=== PATIENT | female | born 1925 | race Caucasian/White ===

== ENCOUNTER 2016-07-11 10:25 | Emergency (ER) | payer MEDICARE, OTHER ==
[~2016-07-11] VITALS: Ht 165.1 cm; Wt 47.0 kg
[~2016-07-11 10:25] MED LIST: ANUC25SU PR; CELE10TA9 PO; COLE625 PO; DOCU1CAP39 PO; FERR324T4 PO; GABA300C3 PO; LORA-474 PO; LORTA5 PO; MAGN400T19 PO; ONDA4 PO; PROT40TA PO; RANI150T PO; SYNT75TA PO; TAB-TAB PO; VITA-13 PO; VITA500S3 PO; ZOFR4TAB3 SL
[2016-07-11 10:30] VITALS: BP 190/88; PULSE 87; RESP 16; TEMP 98
--- NOTE | 2016-07-11 10:39 | PD ---
HPI Chief Complaint: fall Time Seen by Provider: 10:35 Travel History International Travel<30 days: No Contact w/Intl Traveler<30days: No Traveled to known affect area: No History of Present Illness HPI The patient is a 89-year-old female who presents emergency department via [facility] from the assisted after a fall. The patient has a history of dementia, has had increased agitation since yesterday according to the daughter , and was diagnosed with UTI yesterday. The patient apparently fell and struck her head, unsure if there was any loss of consciousness. The daughter does state the patient is slightly agitated, but appears to be a baseline neurologically. The patient does have a history of dementia and tremor, refused her medications this morning. The patient takes none on blood thinners according to the daughter. The patient denies any symptoms including headache, neck pain, chest pain, shortness breath, nausea, vomiting, or abdominal pain. PFSH Past Medical History Anemia: Yes Cancer: Yes (COLON) High Cholesterol: Yes Diminished Hearing: No Endocrine: No Gastrointestinal Disorders: Yes (COLITIS, COLON RESECTION DUE TO CANCER) GERD: Yes Immune Disorder: No Neurologic: Yes (RESTLESS LEG) Psychiatric: No Immunizations Current: Yes Thyroid Disease: Yes Menopausal: Yes : 1 Para: 1 Past Surgical History Abdominal Surgery: Yes (COLON RESECTION) Hysterectomy: Yes Pacemaker: No Other Surgery: Yes Social History Alcohol Use: No Tobacco Use: No Substance Use: No Allergies-Medications (Allergen,Severity, Reaction): Coded Allergies: No Known Allergies (Verified , 08/28/14) Reported Meds & Prescriptions Reported Meds & Active Scripts Active Zofran ODT (Ondansetron HCl) 4 Mg Tab 4 Mg SL Q6H PRN FOR NAUSEA/VOMITING Reported Protonix (Pantoprazole Sodium) 40 Mg Tab 40 Mg PO DAILY Hydrocodone/Acetaminophen 5 mg/325 mg 1 Tab Tab 1 Tab PO Q6H PRN Zofran 4 Mg Tab (Ondansetron Hcl) 4 Mg Tab 4 Mg PO Q6 PRN [place] 5/325 (Hydrocodone/Acetaminophen 5/325) 325 Mg/5 Mg Tab 1 Tab PO Q4H PRN Ativan (Lorazepam) 1 Mg Tab 1 Mg PO Q6H PRN Ranitidine Hcl (Ranitidine HCl) 150 Mg Cap 150 Mg PO HS Magnesium Oxide (Magnesium Oxide (mg Supplement)) 400 Mg Tab 400 Mg PO TID Ferrous Sulfate 325 Mg Tab 325 Mg PO BID Colace 100 Mg Cap (Docusate Sodium) 100 Mg Cap 100 Mg PO BID Anucort-Hc (Hydrocortisone Acetate (Rectal) 25 Mg Sup 25 Mg AR BID Vitamin B-12 (Cyanocobalamin) 500 Mcg Tab 1,000 Mg PO DAILY Multivitamin (Multivitamins) 1 Tab Tab 1 Tab PO DAILY Celexa (Citalopram Hydrobromide) 10 Mg Tab 10 Mg PO HS Vitamin D3 1000 Unit Tab (Cholecalciferol) 1,000 Unit Tab 5,000 Unit PO WEEKLY Welchol 625 Mg Tab (Colesevelam HCl) 625 Mg Tab 625 Mg PO BID Synthroid 75 mcg (Levothyroxine Sodium) 75 Mcg Tab 75 Mcg PO DAILY Gabapentin 300 Mg Cap 900 Mg PO HSPRN Gabapentin 300 Mg Cap 300 Mg PO 9AM, 12 NOON Review of Systems Except as stated in HPI: all other systems reviewed are Neg Neurologic: Positive: Tremor, Change in Mentation (slight increase in agitation according to the daughter) Physical Exam Narrative GENERAL: Awake, alert, pleasant 89-year-old female who appears her stated age and is in no acute respiratory distress. SKIN: Focused skin assessment warm/dry. HEAD: Contusion with ecchymosis noted over the right frontal forehead. EYES: Pupils equal and round. Pupils are 3 mm bilateral and reactive. EOMs are intact. Patient is wearing glasses. ENT: No nasal bleeding or discharge. Mucous membranes pink and moist. NECK: Trachea midline. No JVD. CARDIOVASCULAR: Regular rate and rhythm. No murmur appreciated. RESPIRATORY: No accessory muscle use. Clear to auscultation. Breath sounds equal bilaterally. GASTROINTESTINAL: Abdomen soft, non-tender, nondistended. No rebound tenderness. MUSCULOSKELETAL: No obvious deformities. No clubbing. No cyanosis. No edema. Technology Services Manager strength is 5 out of 5 bilateral. Plantar flexion/dorsiflexion are 5 out of 5. Patient is able flex her hips and her knees bilaterally. NEUROLOGICAL: Awake and alert. No obvious cranial nerve deficits. Motor grossly within normal limits. Normal speech. Repetitive mouth movements and tremors. Oriented to person and place. PSYCHIATRIC: Appropriate mood and affect; insight and judgment normal. Data Data Last Documented VS Vital Signs Date Time Temp Pulse Resp B/P Pulse Ox O2 Delivery O2 Flow Rate FiO2 07/11/16 11:26 71 18 97 Room Air 07/11/16 11:26 185/83 07/11/16 10:[address] Brain W/O Iv Contrast(Rout) (07/11/16 ) Complete Blood Count With Diff (07/11/16 10:35) Comprehensive Metabolic Panel (07/11/16 10:35) Urinalysis - C+S If Indicated (07/11/16 10:35) Potassium Chloride Eff (K-Lyte Cl Eff) (07/11/16 11:45) Urine Culture (07/11/16 11:20) Labs Laboratory Tests Test 07/11/16 07/11/16 10:45 11:20 White Blood Count 8.2 TH/MM3 Red Blood Count 4.31 MIL/MM3 Hemoglobin 13.0 GM/DL Hematocrit 38.1 % Mean Corpuscular Volume 88.3 FL Mean Corpuscular Hemoglobin 30.0 PG Mean Corpuscular Hemoglobin 34.0 % Concent Red Cell Distribution Width 14.1 % Platelet Count 244 TH/MM3 Mean Platelet Volume 9.3 FL Neutrophils (%) (Auto) 73.8 % Lymphocytes (%) (Auto) 14.9 % Monocytes (%) (Auto) 7.8 % Eosinophils (%) (Auto) 2.5 % Basophils (%) (Auto) 1.0 % Neutrophils # (Auto) 6.1 TH/MM3 Lymphocytes # (Auto) 1.2 TH/MM3 Monocytes # (Auto) 0.6 TH/MM3 Eosinophils # (Auto) 0.2 TH/MM3 Basophils # (Auto) 0.1 TH/MM3 CBC Comment DIFF FINAL Differential Comment Sodium Level 140 MEQ/L Potassium Level 3.1 MEQ/L Chloride Level 107 MEQ/L Carbon Dioxide Level 24.3 MEQ/L Anion Gap 9 MEQ/L Blood Urea Nitrogen 21 MG/DL Creatinine 1.11 MG/DL Estimat Glomerular Filtration 46 ML/MIN Rate Random Glucose 74 MG/DL Calcium Level 8.8 MG/DL Total Bilirubin 0.3 MG/DL Aspartate Amino Transf 14 U/L (AST/SGOT) Alanine Aminotransferase 16 U/L (ALT/SGPT) Alkaline Phosphatase 182 U/L Total Protein 7.2 GM/DL Albumin 3.2 GM/DL Urine Color YELLOW Urine Turbidity CLEAR Urine pH 6.0 Urine Specific [place] 1.014 Urine Protein 30 mg/dL Urine Glucose (UA) NEG mg/dL Urine Ketones NEG mg/dL Urine Occult Blood SMALL Urine Nitrite POS Urine Bilirubin NEG Urine Urobilinogen LESS THAN 2.0 MG/DL Urine Leukocyte Esterase MOD Urine RBC 1 /hpf Urine WBC 22 /hpf Urine Bacteria OCC /hpf Urine Mucus FEW /lpf Microscopic Urinalysis Comment CULTURE INDICATED MDM Medical Decision Making Medical Screen Exam Complete: Yes Emergency Medical Condition: Yes Medical Record Reviewed: Yes Interpretation(s) Last Impressions Head CT 07/11/16 0000 Signed Impressions: Service Date/Time: Monday, July 11, 2016 10:51 - CONCLUSION: 1. Atrophy as described above. No evidence of acute intracranial pathology. Art David MD Laboratory Tests Test 07/11/16 07/11/16 10:45 11:20 White Blood Count 8.2 TH/MM3 Red Blood Count 4.31 MIL/MM3 Hemoglobin 13.0 GM/DL Hematocrit 38.1 % Mean Corpuscular Volume 88.3 FL Mean Corpuscular Hemoglobin 30.0 PG Mean Corpuscular Hemoglobin 34.0 % Concent Red Cell Distribution Width 14.1 % Platelet Count 244 TH/MM3 Mean Platelet Volume 9.3 FL Neutrophils (%) (Auto) 73.8 % Lymphocytes (%) (Auto) 14.9 % Monocytes (%) (Auto) 7.8 % Eosinophils (%) (Auto) 2.5 % Basophils (%) (Auto) 1.0 % Neutrophils # (Auto) 6.1 TH/MM3 Lymphocytes # (Auto) 1.2 TH/MM3 Monocytes # (Auto) 0.6 TH/MM3 Eosinophils # (Auto) 0.2 TH/MM3 Basophils # (Auto) 0.1 TH/MM3 CBC Comment DIFF FINAL Differential Comment Sodium Level 140 MEQ/L Potassium Level 3.1 MEQ/L Chloride Level 107 MEQ/L Carbon Dioxide Level 24.3 MEQ/L Anion Gap 9 MEQ/L Blood Urea Nitrogen 21 MG/DL Creatinine 1.11 MG/DL Estimat Glomerular Filtration 46 ML/MIN Rate Random Glucose 74 MG/DL Calcium Level 8.8 MG/DL Total Bilirubin 0.3 MG/DL Aspartate Amino Transf 14 U/L (AST/SGOT) Alanine Aminotransferase 16 U/L (ALT/SGPT) Alkaline Phosphatase 182 U/L Total Protein 7.2 GM/DL Albumin 3.2 GM/DL Urine Color YELLOW Urine Turbidity CLEAR Urine pH 6.0 Urine Specific [place] 1.014 Urine Protein 30 mg/dL Urine Glucose (UA) NEG mg/dL Urine Ketones NEG mg/dL Urine Occult Blood SMALL Urine Nitrite POS Urine Bilirubin NEG Urine Urobilinogen LESS THAN 2.0 MG/DL Urine Leukocyte Esterase MOD Urine RBC 1 /hpf Urine WBC 22 /hpf Urine Bacteria OCC /hpf Urine Mucus FEW /lpf Microscopic Urinalysis Comment CULTURE INDICATED Differential Diagnosis Differential diagnosis includes closed head injury, intracranial hemorrhage, mechanical fall, contusion, hematoma, UTI, hyponatremia. Narrative Course CT of the brain was ordered. IV was established, labs are drawn and sent, and the patient was placed on cardiac telemetry monitoring and continuous pulse oximetry monitoring. CT of the brain is negative. Potassium was mildly low at 3.1, was replaced orally. UA is positive for infection, therefore, the patient was administered Cipro 400 mg intravenously and will be discharged home on Cipro 500 twice a day for 7 days. The patient is advised to follow-up with her primary physician and return if symptoms worsen or progress. Diagnosis Primary Impression: Closed head injury Qualified Code: S09.90XA - Closed head injury, initial encounter Additional Impression: UTI (urinary tract infection) Qualified Code: N30.00 - Acute cystitis without hematuria Patient Instructions: General Instructions Additional Instructions: Cipro as directed. Ice to the right forehead. Follow-up with your primary physician. Return if symptoms worsen or progress. Med/Other Pt SpecificInfo: Prescription(s) given Scripts Ciprofloxacin (Cipro)500 Mg [id number] Mg PO BID 7 Days Ref 0 Prov:Liban Art MD 07/11/16 Disposition: 01 DISCHARGE HOME (patient will be transferred back to the assisted-living facility/assisted) Condition: Stable Liban Art MD July 11, 2016 10:38
[2016-07-11 11:00] LABS: AUTOMATED NEUTROPHIL # 6.1 TH/MM3 (1.8-7.7); BASOPHIL # 0.1 TH/MM3 (0-0.2); EOSINOPHIL # 0.2 TH/MM3 (0-0.4); EOSINOPHIL % 2.5 % (0.0-4.0); HEMATOCRIT 38.1 % (35.0-46.0); HEMO FLAGS DIFF FINAL; LYMPH % 14.9 % (9.0-44.0); LYMPHOCYTE # 1.2 TH/MM3 (1.0-4.8); MEAN CELL VOLUME 88.3 FL (80.0-100.0); MONO % 7.8 % (0.0-8.0); NEUT % 73.8 % (16.0-70.0); PLATELET COUNT 244 TH/MM3 (150-450); RED BLOOD COUNT 4.31 MIL/MM3 (4.00-5.30); RED CELL DISTRIBUTION WIDTH 14.1 % (11.6-17.2); WHITE BLOOD COUNT 8.2 TH/MM3 (4.0-11.0)
--- NOTE | 2016-07-11 11:00 | RADRPT ---
EXAM DATE/TIME: 07/11/2016 10:51 [facility] COMPARISON: CT BRAIN W/O CONTRAST, August 28, 2014, 23:41. INDICATIONS : Trauma. Fall. Contusion on right forehead. RADIATION DOSE: 34.92 CTDIvol (mGy) MEDICAL HISTORY : Carcinoma, colon. SURGICAL HISTORY : Colon resection. Hysterectomy. ENCOUNTER: Initial ACUITY: 1 day PAIN SCALE: 4/10 LOCATION: Right cranial TECHNIQUE: Multiple contiguous axial images were obtained of the head. Using automated exposure control and adj ustment of the mA and/or kV according to patient size, radiation dose was kept as low as reasonably a chievable to obtain optimal diagnostic quality images. FINDINGS: There is no evidence of acute cortical infarction, acute hemorrhage, mass effect or midline shift. Th ere is diffuse moderate supratentorial and infratentorial atrophy. There is periventricular hypodensi ty compatible with chronic ischemic change slightly more than expected for patient this age. CONCLUSION: 1. Atrophy as described above. No evidence of acute intracranial pathology. Art David MD on July 11, 2016 at 10:56 Board Certified Radiologist. This report was verified electronically.
[2016-07-11 11:19] LABS: ANION GAP 9 MEQ/L (5-15); AST (GOT) 14 U/L (15-37); BICARBONATE 24.3 MEQ/L (21.0-32.0); BLOOD UREA NITROGEN 21 MG/DL (7-18); CHLORIDE 107 MEQ/L (98-107); GLOMERULAR FILTRATION RATE 46 ML/MIN (>89); POTASSIUM 3.1 MEQ/L (3.5-5.1); SODIUM (NA) 140 MEQ/L (136-145)
[2016-07-11 11:22] LABS: ALKALINE PHOSPHATASE 182 U/L (45-117); ALT (GPT) 16 U/L (10-53); TOTAL BILIRUBIN ADULT 0.3 MG/DL (0.2-1.0)
[2016-07-11 11:26] VITALS: BP 185/83; PULSE 71; RESP 18; O2SAT 97
[2016-07-11] MEDS ORDERED: POTASSIUM CHLORIDE 25 MEQ EFFERVESCENT TAB PO ONE (11:45)
[2016-07-11 11:48] LABS: BACTERIA, URINE OCC /hpf; BLOOD, URINE SMALL (NEG); COMMENT (UR) CULTURE INDICATED; CULTURE IF INDICATED CULTURE INDICATED; GLUCOSE,URINE NEG (NEG); KETONE, URINE NEG (NEG); MUCUS URINE FEW /lpf (OCC); NITRITE,URINE POS (NEG); URINE COLOR YELLOW (YELLW/STRAW)
[2016-07-11] MEDS ORDERED: CIPR-9 PO (12:11)
[2016-07-11] MEDS ORDERED: CIPROFLOXACIN 400 MG PREMIX 200 ML IV ONE (12:15)
[2016-07-11 13:29] VITALS: BP 167/81; PULSE 75; RESP 18; O2SAT 97
== END 2016-07-11 13:29 | disposition home or self-care (01) ==
LOC: NEPE 10:25
DX: S09.90XA Unspecified injury of head, initial encounter (principal); N30.00 Acute cystitis without hematuria; B96.20 Unspecified Escherichia coli [E. coli] as the cause of diseases classified elsewhere; W19.XXXA Unspecified fall, initial encounter; Y92.129 Unspecified place in nursing home as the place of occurrence of the external cause
CPT/HCPCS: 70450; 80053; 81001; 85025; 87077; 87086; 87186; 96365; 99284; J0744

== ENCOUNTER 2016-11-23 04:09 | Inpatient (IN) | payer MEDICARE, OTHER ==
[2016-11-23] VITALS (8 sets, daily range): BP systolic 132–185; BP diastolic 80–92; PULSE 92–99; RESP 16–22; TEMP 97.4–99.7; O2SAT 93–97
[~2016-11-23] VITALS: Ht 170.2 cm; Wt 53.3 kg
[~2016-11-23 04:09] MED LIST changes: +CIPR-9 PO
[2016-11-23] MEDS ORDERED: SODIUM CHLOR 0.9% 1000 ML INJ 1,000 ML IV SCH ×2 (04:29→05:00)
[2016-11-23] MEDS ORDERED: ONDANSETRON HCL 4 MG/2 ML VIAL IVP ONE (04:30)
[2016-11-23] MEDS ORDERED: SODIUM CHLORIDE 0.9% FLUSH 10 ML FLUSH IV FLUSH PRN ×2 (04:30→05:45)
[2016-11-23] MEDS ORDERED: FAMOTIDINE 20 MG/2 ML VIAL IV PUSH ONE (04:30)
[2016-11-23] MEDS ORDERED: ONDANSETRON HCL 4 MG/2 ML VIAL IV ONE (05:00)
[2016-11-23 05:03] LABS: AUTOMATED NEUTROPHIL # 17.6 TH/MM3 (1.8-7.7); BASOPHIL # 0.2 TH/MM3 (0-0.2); EOSINOPHIL % 0.1 % (0.0-4.0); HEMATOCRIT 46.4 % (35.0-46.0); LYMPH % 3.6 % (9.0-44.0); LYMPHOCYTE # 0.7 TH/MM3 (1.0-4.8); MEAN CELL VOLUME 90.4 FL (80.0-100.0); MEAN CORPUSCULAR HGB CONC 33.1 % (32.0-36.0); MONO % 4.1 % (0.0-8.0); NEUT % 91.2 % (16.0-70.0); PLATELET COUNT 296 TH/MM3 (150-450); RED BLOOD COUNT 5.13 MIL/MM3 (4.00-5.30); RED CELL DISTRIBUTION WIDTH 13.4 % (11.6-17.2); WHITE BLOOD COUNT 19.3 TH/MM3 (4.0-11.0)
[2016-11-23 05:06] LABS: HEMO FLAGS AUTO DIFF
[2016-11-23 05:14] LABS: POTASSIUM 3.6 MEQ/L (3.5-5.1)
[2016-11-23] MEDS ORDERED: LIDOCAINE HCL 1% 50 ML VIAL IM ONE (05:15)
[2016-11-23 05:17] LABS: BLOOD, URINE NEG (NEG); GLUCOSE,URINE NEG (NEG); KETONE, URINE NEG (NEG); NITRITE,URINE NEG (NEG); PH, URINE 7.5 (5.0-8.5)
[2016-11-23 05:19] LABS: URINE COLOR YELLOW (YELLW/STRAW)
[2016-11-23 05:22] LABS: COMMENT (UR) CATH-CULT NOT IND; CULTURE IF INDICATED CATH CULTURE NOT IND; RBC, URINE 0-3 /hpf (0-3); SQUAMOUS EPITHELIAL CELL URINE 0-5 /hpf (0-5)
[2016-11-23 05:28] LABS: BANDS 10 % (0-6); NEUTROPHIL # MANUAL DIFF 17.8 TH/MM3 (1.8-7.7); POLYS (SEG NEUTROPHILS) 82 % (16-70); WBC DIFF SAMPLE 100
[2016-11-23 05:29] LABS: PLATELET ESTIMATE SMEAR NORMAL (NORMAL); PLATELET MORPHOLOGY NORMAL (NORMAL); SCAN/DIFF FINAL DIFF MANUAL
--- NOTE | 2016-11-23 05:29 | PD ---
HPI Chief Complaint: GI Complaint Time Seen by Provider: 04:19 Travel History International Travel<30 days: No Contact w/Intl Traveler<30days: No Traveled to known affect area: No History of Present Illness HPI The patient is an 89-year-old female, resident at [facility] who was sent here because of vomiting with some coffee-ground appearing material in it. She does not have many complaints, denies abdominal pain and states the nurses were overreacting at the shelter. The patient is a DNR. She is a poor historian. Apparently, she has had a partial colon resection, hysterectomy, hip surgery and vocal cord surgery. 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) GERD: Yes Immune Disorder: No Neurologic: Yes (RESTLESS LEG) Psychiatric: No Immunizations Current: Yes Thyroid Disease: Yes Menopausal: Yes : 1 Para: 1 Past Surgical History Abdominal Surgery: Yes (COLON RESECTION) Hysterectomy: Yes Pacemaker: No Other Surgery: Yes Social History Alcohol Use: No Tobacco Use: No Substance Use: No Allergies-Medications (Allergen,Severity, Reaction): Coded Allergies: No Known Allergies (Verified , 11/23/16) Reported Meds & Prescriptions Reported Meds & Active Scripts Active Review of Systems Except as stated in HPI: all other systems reviewed are Neg Physical Exam Exam Limitations: Poor Historian Narrative GENERAL: The patient is alert, talkative in minimal apparent distress. SKIN: Focused skin assessment warm/dry. HEAD: Atraumatic. Normocephalic. EYES: Pupils equal and round. No scleral icterus. No injection or drainage. ENT: No nasal bleeding or discharge. Mucous membranes pink and moist. NECK: Trachea midline. No JVD. CARDIOVASCULAR: Regular rate and rhythm. No murmur appreciated. RESPIRATORY: No accessory muscle use. Clear to auscultation. Breath sounds equal bilaterally. GASTROINTESTINAL: Abdomen soft, non-tender, nondistended. Hepatic and splenic margins not palpable. MUSCULOSKELETAL: No obvious deformities. No clubbing. No cyanosis. No edema. NEUROLOGICAL: Awake and alert. No obvious cranial nerve deficits. Motor grossly within normal limits. Normal speech. PSYCHIATRIC: Appropriate mood and affect; insight and judgment normal. Data Data Orders Orders Basic Metabolic Panel (Bmp) (11/23/16 04:29) Complete Blood Count With Diff (11/23/16 04:29) Lipase (11/23/16 04:29) Urinalysis - C+S If Indicated (11/23/16 04:29) Iv Access Insert/Monitor (11/23/16 04:29) Ecg Monitoring (11/23/16 04:29) Oximetry (11/23/16 04:29) Ondansetron Inj (Zofran Inj) (11/23/16 04:30) Sodium Chlor 0.9% 1000 Ml Inj (Ns 1000 M (11/23/16 04:29) Sodium Chloride 0.9% Flush (Ns Flush) (11/23/16 04:30) Famotidine Inj (Pepcid Inj) (11/23/16 04:30) Ondansetron Inj (Zofran Inj) (11/23/16 05:00) Sodium Chlor 0.9% 1000 Ml Inj (Ns 1000 M (11/23/16 05:00) Lidocaine 1% Inj (50 Ml) (Xylocaine 1% I (11/23/16 05:15) Ceftriaxone Inj (Rocephin Inj) (11/23/16 05:15) Cath For Specimen (11/23/16 05:08) Ct Abd/Pel W/O Iv Contrast (11/23/16 05:30) Admit To Inpatient (11/23/16 ) Vital Signs (Adult) Q4H (11/23/16 05:45) Activity Oob With Assistance (11/23/16 05:45) Payroll Processor / Telemetry .CONTINUOUS (11/23/16 05:45) Diet Npo (11/23/16 Breakfast) Sodium Chlor 0.45% 1000 Ml Inj (1/2 Ns 1 (11/23/16 05:45) Sodium Chloride 0.9% Flush (Ns Flush) (11/23/16 05:45) Sodium Chloride 0.9% Flush (Ns Flush) (11/23/16 09:00) Ondansetron Inj (Zofran Inj) (11/23/16 05:45) Comprehensive Metabolic Panel (11/24/16 06:00) Complete Blood Count With Diff (11/24/16 06:00) Lipase (11/24/16 06:00) Naloxone Inj (Narcan Inj) (11/23/16 05:45) Inpatient Certification (11/23/16 ) Labs Laboratory Tests Test 11/23/16 04:43 11/23/16 05:06 White Blood Count 19.3 TH/MM3 Red Blood Count 5.13 MIL/MM3 Hemoglobin 15.4 GM/DL Hematocrit 46.4 % Mean Corpuscular Volume 90.4 FL Mean Corpuscular Hemoglobin 30.0 PG Mean Corpuscular Hemoglobin Concent 33.1 % Red Cell Distribution Width 13.4 % Platelet Count 296 TH/MM3 Mean Platelet Volume 9.1 FL Neutrophils (%) (Auto) 91.2 % Lymphocytes (%) (Auto) 3.6 % Monocytes (%) (Auto) 4.1 % Eosinophils (%) (Auto) 0.1 % Basophils (%) (Auto) 1.0 % Neutrophils # (Auto) 17.6 TH/MM3 Lymphocytes # (Auto) 0.7 TH/MM3 Monocytes # (Auto) 0.8 TH/MM3 Eosinophils # (Auto) 0.0 TH/MM3 Basophils # (Auto) 0.2 TH/MM3 CBC Comment AUTO DIFF Differential Total Cells Counted 100 Neutrophils % (Manual) 82 % Band Neutrophils % 10 % Lymphocytes % 4 % Monocytes % 4 % Neutrophils # (Manual) 17.8 TH/MM3 Differential Comment FINAL DIFF MANUAL Platelet Estimate NORMAL Platelet Morphology Comment NORMAL Red Cell Morphology Comment NORMAL Blood Urea Nitrogen 32 MG/DL Creatinine 1.40 MG/DL Random Glucose 144 MG/DL Calcium Level 9.3 MG/DL Sodium Level 143 MEQ/L Potassium Level 3.6 MEQ/L Chloride Level 101 MEQ/L Carbon Dioxide Level 33.0 MEQ/L Anion Gap 9 MEQ/L Estimat Glomerular Filtration Rate 35 ML/MIN Lipase 1090 U/L Urine Color YELLOW Urine Turbidity CLEAR Urine pH 7.5 Urine Specific [place] 1.022 Urine Protein 300 OR GREATER mg/dL Urine Glucose (UA) NEG mg/dL Urine Ketones NEG mg/dL Urine Occult Blood NEG Urine Nitrite NEG Urine Bilirubin NEG Urine Leukocyte Esterase NEG Urine RBC 0-3 /hpf Urine WBC 3-5 /hpf Urine Squamous Epithelial Cells 0-5 /hpf Urine Bacteria NONE /hpf Microscopic Urinalysis Comment CATH-CULT NOT IND MDM Medical Decision Making Medical Screen Exam Complete: Yes Emergency Medical Condition: Yes Medical Record Reviewed: Yes Interpretation(s) The CBC shows a white count of 19,300 with a hemoglobin of 15.4 and hematocrit of 46.4 area there are 91% neutrophils. The basic metabolic profile shows a bicarbonate of 33, BUN 32, creatinine 1.4 with GFR of 35 and her glucose is 144. The lipase is 1090. The urine shows specific gravity 1.0-2 with 300 or greater protein and is otherwise normal and culture is not indicated. This was a catheterized urine. Differential Diagnosis Cholecystitis, pancreatitis, dehydration, electrolyte disorder, hypo-/ hyperglycemia, colitis, ischemic bowel, small bowel obstruction Narrative Course The patient appears to have pancreatitis, hematemesis-by history and moderate dehydration. The dehydration is indicated by the apparent hemoconcentration, elevated BUN and by clinical appearance. Physician Communication Physician Communication I discussed the patient with Dr. Anderson, the patient will be admitted to her here at [place]. Diagnosis Primary Impression: Pancreatitis Additional Impressions: Hematemesis Moderate dehydration Admitting Information Admitting Physician Requests: Admit Manjeet Call MD Nov 23, 2016 05:29
[2016-11-23] MEDS ORDERED: NALOXONE HCL 0.4 MG/ML AMP IV PUSH PRN (05:45)
[2016-11-23] MEDS ORDERED: ONDANSETRON HCL 4 MG/2 ML VIAL IVP PRN (05:45)
[2016-11-23] MEDS ORDERED: MAGN500T2 PO (05:52)
[2016-11-23] MEDS ORDERED: LEVO75TA3 PO (05:52)
[2016-11-23] MEDS ORDERED: POTA10CA PO (05:52)
[2016-11-23] MEDS ORDERED: CRANCAP2 PO (05:52)
[2016-11-23] MEDS ORDERED: PRIM50TA5 PO (05:52)
[2016-11-23] MEDS ORDERED: AMAN100T PO (05:52)
[2016-11-23] MEDS ORDERED: MEMA28CA PO (05:52)
[2016-11-23] MEDS ORDERED: GABA300C5 PO (05:52)
[2016-11-23] MEDS ORDERED: CELE10TA PO (05:52)
[2016-11-23] MEDS ORDERED: BUSP5TAB PO (05:52)
[2016-11-23] MEDS ORDERED: BETH10 PO (05:52)
[2016-11-23] MEDS ORDERED: ZOFR4TAB PO (05:52)
[2016-11-23] MEDS ORDERED: COLE5GRA5 PO (05:52)
[2016-11-23] MEDS ORDERED: QUES4POW2 PO (05:52)
[2016-11-23] MEDS ORDERED: ARIC23TA PO (05:52)
[2016-11-23] MEDS ORDERED: TYLE325T PO (05:52)
--- NOTE | 2016-11-23 06:04 | RADRPT ---
EXAM DATE/TIME: 11/23/2016 05:43 [facility] COMPARISON: No previous studies available for comparison. INDICATIONS : Abdominal pain. ORAL CONTRAST: No oral contrast ingested. RADIATION DOSE: 7.62 CTDIvol (mGy) MEDICAL HISTORY : Ulcerative colitis. Carcinoma, colon. SURGICAL HISTORY : Colon resection. Hysterectomy.Colectomy. Hip replacement. ENCOUNTER: Initial ACUITY: 1 day PAIN SCALE: Non-responsive LOCATION: abdomen TECHNIQUE: Volumetric scanning of the abdomen and pelvis was performed. Using automated exposure control and ad justment of the mA and/or kV according to patient size, radiation dose was kept as low as reasonably achievable to obtain optimal diagnostic quality images. DICOM format image data is available electro nically for review and comparison. FINDINGS: Lung bases demonstrate some dependent atelectasis. No significant effusion. No acute findings in the liver. Calcified granulomata in the spleen. Severe chronic right-sided hydronephrosis with cortical t hinning. Large calcified gallstone in the gallbladder. Multiple left-sided renal calculi ranging in s ize from about 1 mm to 7 mm in the lower pole left kidney. No left-sided hydronephrosis. Stomach is fairly markedly distended with a large air-fluid level. Small bowel is also mildly distend ed with multiple air fluid levels. There is some distal decompression most characteristic of an early or partial small bowel obstruction. No free air or free fluid. Rectal constipation. Catheter present in the pelvis presumably in decompressed bladder although the confines of the bladder not well delin eated. Previous left hip kristy fixation. CONCLUSION: 1. Distended stomach and proximal and mid small bowel loops with air fluid levels with some distal de compression of small bowel most characteristic of an early or partial small bowel obstruction. 2. Severe chronic right-sided hydronephrosis with cortical atrophy. Nonobstructing renal calculi. 3. Large calcified gallstone. Lauri Miranda MD on November 23, 2016 at 5:57 Board Certified Radiologist. This report was verified electronically.
[2016-11-23] MEDS: SODIUM CHLORIDE 0.9% FLUSH 10 ML FLUSH IV FLUSH SCH ×2 (07:48→21:36)
[2016-11-23] MEDS: SODIUM CHLOR 0.45% 1000 ML INJ 1,000 ML IV SCH ×2 (08:28→21:35)
[2016-11-23] MEDS ORDERED: hydrALAZINE HCL 20 MG/ML VIAL IV PUSH PRN (11:00)
[2016-11-23] MEDS ORDERED: SOD PHOSPHATE/SOD BIPHOSPHATE (ADULT) ENEMA 133ML RECTAL ONE ×2 (11:00→15:00)
--- NOTE | 2016-11-23 11:36 | HHI.HP ---
[facility] Primary Care Physician John Ballesteros MD Admission Diagnosis pancreatitis, hematemesis Diagnoses: (1) Systemic inflammatory response syndrome Diagnosis: Principal (2) Elevated lipase Diagnosis: Principal (3) Leukocytosis Diagnosis: Principal (4) Chronic kidney disease, stage 3 Diagnosis: Principal (5) Hematemesis Diagnosis: Principal (6) Small bowel obstruction Diagnosis: Principal (7) Fecal impaction in rectum Diagnosis: Principal Chief Complaint: Patient sent here from local nursing facility because of hematemesis Travel History International Travel<30 Days: No Contact w/Intl Traveler <30 Da: No Traveled to Known Affected Are: No History of Present Illness Written by Wilbert Call, acting as scribe for Dr. Posadas on 11/23/16 at 11: 21. 89-year-old female with known history of hypertension, hyperlipidemia, anemia, hypothyroidism, history colon cancer who presented to the hospital from local nursing facility because of hematemesis. Patient is unable to give any pertinent information in regards to the reason why she is here at the hospital. Information was taken from medical records, nursing staff. As indicated the patient was sent here for emesis with coffee-ground appearing material. Patient denies any abdominal discomfort or pain. Workup does indicate significant abnormalities with systemic inflammatory response syndrome from leukocytosis, tachycardia, radiological studies do indicate small bowel obstruction with significant distention of the stomach. It was indicated by nursing staff that they attempted to place an NG tube without success. Upon review of the CT scan patient has significant rectal constipation/impaction. Laboratory studies did indicate elevated lipase level. Further workup needs to be ascertained at this time. Thus, it was recommended by ER physician the patient be admitted for further evaluation management. Records indicate that the patient is a DNR. Nursing staff indicates that family had just left, will need to discuss care with them further plans of care. Review of Systems ROS Limitations: Poor Historian Past Family Social History Past Medical History Unable to obtain information patient, information taken from medical records History of colon cancer Depression GERD Osteoporosis Hypothyroidism Hyperlipidemia Hypertension History of anemia Dementia Restless leg syndrome Past Surgical History Unable to obtain information from the patient, information taken from medical records Partial colon resection Hysterectomy Left hip surgery Vocal cord surgery Reported Medications Reported Meds & Active Scripts Active Reported Zofran (Ondansetron HCl) 4 Mg Tab 4 Mg PO Q6HR PRN Tylenol (Acetaminophen) 325 Mg Tab 650 Mg PO Q8HR PRN Questran (Cholestyramine) 4 Gm/Dose Powd 4 Gm PO Q6HR PRN 1 level scoopful of powder contains 4 grams of cholestyramine. Gabapentin 300 Mg Cap 300 Mg PO TID Urecholine (Bethanechol Chloride) 10 Mg Tab 10 Mg PO BID Magnesium Oxide 500 Mg Tab 500 Mg PO BID Buspirone (Buspirone HCl) 5 Mg Tab 5 Mg PO BID Amantadine (Amantadine HCl) 100 Mg Tab 100 Mg PO BID Primidone 50 Mg Tab 50 Mg PO HS Potassium Chloride ER (Potassium Chloride) 10 Meq Cap 10 Meq PO DAILY Namenda Xr (Memantine) 28 Mg Caper 28 Mg PO DAILY Levothyroxine (Levothyroxine Sodium) 75 Mcg Tab 75 Mcg PO DAILY Cranberry Urinary Comfort (Vitamins C & E) 1 Cap 1 Cap PO DAILY Colestipol (Colestipol HCl) 5 Gm Pkt 5 Gm PO DAILY 1 packet of granules contains 5 gm of colestipol. Celexa (Citalopram Hydrobromide) 10 Mg Tab 10 Mg PO HS Aricept (Donepezil) 23 Mg Tab 10 Mg PO HS Do not split, crushed or chewed. Allergies: Coded Allergies: No Known Allergies (Verified , 11/23/16) Family History Records reviewed and indicates that family history is significant for cancer Social History Records reviewed to indicate patient quit smoking in 1984. She lives at [facility]. No indication of any alcohol or illicit drugs Physical Exam Vital Signs Vital Signs Date Time Temp Pulse Resp B/P (MAP) Pulse Ox O2 Delivery O2 Flow Rate FiO2 11/23/16 08:09 94 Nasal Cannula 2.00 11/23/16 08:00 99.1 93 20 178/92 (120) 96 11/23/16 06:49 99.2 90 18 161/90 (113) 94 2.00 11/23/16 05:20 92 16 148/89 (108) 95 Room Air 11/23/16 04:15 98.6 92 17 132/80 (97) 96 Room Air Physical Exam GENERAL: Well-developed, well-nourished, in no acute distress. Awake HEENT: Head is normocephalic without any lesions or masses noted. Facial features are symmetric. Eyes: Pupils equal round reactive to light. Extraocular muscles are intact. Conjunctivae were clear. Oropharyngeal: Pharynx without any erythema edema. Tongue is midline without deviation. Buccal mucosa is moist without any masses or lesions, dentures noted. Patient has constant rhythmic motion of opening and closing her mouth NECK: Supple without any masses. Trachea midline no deviation. No JVD, no bruits are appreciated CARDIAC: Regular rhythm, tachycardic. S1/S2 are heard. No murmurs gallops or rubs. LUNGS: Clear to auscultation bilaterally. No wheeze, rhonchi or rales. No use of accessory muscles on inspiration or expiration. ABDOMEN: Soft, nontender. Nondistended. Bowel sounds heard in all 4 quadrants. No organomegaly or masses. Negative rebound, negative guarding EXTREMITIES: No edema, pulses are equal bilaterally. No cyanosis or clubbing NEUROLOGY: Mood and affect appear appropriate. Cranial nerves II through XII grossly intact. Muscle strength 5/5 in upper and lower extremities bilaterally. Deep tendon reflexes are 2+ in upper and lower extremities bilaterally. Laboratory Laboratory Tests Test 11/23/16 04:43 11/23/16 05:06 White Blood Count 19.3 Red Blood Count 5.13 Hemoglobin 15.4 Hematocrit 46.4 Mean Corpuscular Volume 90.4 Mean Corpuscular Hemoglobin 30.0 Mean Corpuscular Hemoglobin Concent 33.1 Red Cell Distribution Width 13.4 Platelet Count 296 Mean Platelet Volume 9.1 Neutrophils (%) (Auto) 91.2 Lymphocytes (%) (Auto) 3.6 Monocytes (%) (Auto) 4.1 Eosinophils (%) (Auto) 0.1 Basophils (%) (Auto) 1.0 Neutrophils # (Auto) 17.6 Lymphocytes # (Auto) 0.7 Monocytes # (Auto) 0.8 Eosinophils # (Auto) 0.0 Basophils # (Auto) 0.2 CBC Comment AUTO DIFF Differential Total Cells Counted 100 Neutrophils % (Manual) 82 Band Neutrophils % 10 Lymphocytes % 4 Monocytes % 4 Neutrophils # (Manual) 17.8 Differential Comment FINAL DIFF MANUAL Platelet Estimate NORMAL Platelet Morphology Comment NORMAL Red Cell Morphology Comment NORMAL Blood Urea Nitrogen 32 Creatinine 1.40 Random Glucose 144 Calcium Level 9.3 Sodium Level 143 Potassium Level 3.6 Chloride Level 101 Carbon Dioxide Level 33.0 Anion Gap 9 Estimat Glomerular Filtration Rate 35 Lipase 1090 Urine Color YELLOW Urine Turbidity CLEAR Urine pH 7.5 Urine Specific [place] 1.022 Urine Protein 300 OR GREATER Urine Glucose (UA) NEG Urine Ketones NEG Urine Occult Blood NEG Urine Nitrite NEG Urine Bilirubin NEG Urine Leukocyte Esterase NEG Urine RBC 0-3 Urine WBC 3-5 Urine Squamous Epithelial Cells 0-5 Urine Bacteria NONE Microscopic Urinalysis Comment CATH-CULT NOT IND Result Diagram: 11/23/163 11/23/16442 Imaging Last Impressions Abdomen/Pelvis CT 11/23/16 0530 Signed Impressions: Service Date/Time: , November 23, 2016 05:43 - CONCLUSION: 1. Distended stomach and proximal and mid small bowel loops with air fluid levels with some distal decompression of small bowel most characteristic of an early or partial small bowel obstruction. 2. Severe chronic right-sided hydronephrosis with cortical atrophy. Nonobstructing renal calculi. 3. Large calcified gallstone. Lauri Miranda MD Septic Shock Reassessment Heart: Other (tachycardic) Lungs: Clear Skin: Warm, [place] Peripheral Pulses: Bounding Right Radial Bounding Left Radial Capillary Refill: Brisk, <2 seconds Caprini VTE Risk Assessment Caprini VTE Risk Assessment: Mod/High Risk (score >= 2) Caprini Risk Assessment Model Point Value = 1 Point Value = 2 Point Value = 3 Point Value = 5 Age 41-60 Minor surgery BMI > 25 kg/m2 Swollen legs Varicose veins or History of unexplained or recurrent spontaneous Oral contraceptives or hormone replacement Sepsis (< 1 month) Serious lung disease, including pneumonia (< 1 month) Abnormal pulmonary function Acute myocardial infarction Congestive heart failure (< 1 month) History of inflammatory bowel disease Medical patient at bed rest Age 61-74 Arthroscopic surgery Major open surgery (> 45 min) Laparoscopic surgery (> 45 min) Malignancy Confined to bed (> 72 hours) Immobilizing plaster cast Central venous access Age >= 75 History of VTE Family history of VTE Factor V Leiden Prothrombin [id number] Lupus anticoagulant Anticardiolipin antibodies Elevated serum homocysteine Heparin-induced thrombocytopenia Other congenital or acquired thrombophilia Stroke (< 1 month) Elective arthroplasty Hip, pelvis, or leg fracture Acute spinal cord injury (< 1 month) Prophylaxis Regimen Total Risk Factor Score Risk Level Prophylaxis Regimen 0-1 Low Early ambulation 2 Moderate Order ONE of the following: *Sequential Compression Device (SCD) *Heparin 5000 units SQ BID 3-4 Higher Order ONE of the following medications: *Heparin 5000 units SQ TID *Enoxaparin/Lovenox 40 mg SQ daily (WT < 150 kg, CrCl > 30 mL/min) *Enoxaparin/Lovenox 30 mg SQ daily (WT < 150 kg, CrCl > 10-29 mL/min) *Enoxaparin/Lovenox 30 mg SQ BID (WT < 150 kg, CrCl > 30 mL/min) AND/OR *Sequential Compression Device (SCD) 5 or more Highest Order ONE of the following medications: *Heparin 5000 units SQ TID (Preferred with Epidurals) *Enoxaparin/Lovenox 40 mg SQ daily (WT < 150 kg, CrCl > 30 mL/min) *Enoxaparin/Lovenox 30 mg SQ daily (WT < 150 kg, CrCl > 10-29 mL/min) *Enoxaparin/Lovenox 30 mg SQ BID (WT < 150 kg, CrCl > 30 mL/min) AND *Sequential Compression Device (SCD) Assessment and Plan Assessment and Plan Systemic inflammatory response syndrome Patient meets criteria with leukocytosis, tachycardia, no signs of active infection at this time, likely secondary to bowel obstruction Check lactic acid level Monitor CBC, leukocytosis could be secondary to mild dehydration, concentration Small bowel obstruction with hematemesis per retirement documentation and fecal impaction CT scan shows air-fluid levels, significant gastric distention and small bowel distention with distal small bowel decompression, significant stool in the rectum Continue conservative measures at this time with nothing by mouth, IV fluids Unsuccessful placement of NG tube in emergency department Fleet enema 1 if no improvement will likely need soapsuds enemas until clear Continue monitor KUB daily to evaluate for improvement Continue monitor hemoglobin/hematocrit due to the stated hematemesis GI bleed, hematemesis After NG tube was placed for bowel decompression, patient had immediately 1 L of maroon fluid. This was tested and was rapidly/grossly heme positive Will need to monitor hemoglobin and hematocrit Start Protonix IV Consult porter baggage Transfuse if hemoglobin below 8.0 Elevated lipase Could be secondary to nausea, vomiting, bowel obstruction Continue monitor lipase level CT scan does not indicate any acute abnormality with pancreas Hypertension Unable to use by mouth medication this time Start Vasotec, Apresoline as needed for blood pressure control Resume home medications when patient is able to tolerate by mouth Chronic kidney disease stage III renal functions appear to be stable Monitor renal function avoid nephrotoxins DVT prevention sequential compression devices Goals of care: Discussed with son and [id number] bedside extensively about patient's condition. Notified them of possible etiologies, treatment plan, invasive procedures. At the present time they are still indecisive about their wishes. I discussed with them consulting palliative care and they are in agreement. [facility] care was notified plans on meeting with the patient family at 10 AM tomorrow morning. This note was transcribed by staci GAVIN . I, Dr. Shweta Posadas personally performed the history, physical exam, and medical decision making; and confirmed the accuracy of the information in the transcribed note. Authenticated by Dr. Shweta Posadas on 11/23/16 at 11:21. Physician Certification 2 Midnight Certification Type: Admission for Inpatient Services Order for Inpatient Services The services are ordered in accordance with Medicare regulations or non- Medicare payer requirements, as applicable. In the case of services not specified as inpatient-only, they are appropriately provided as inpatient services in accordance with the 2-midnight benchmark. Estimated LOS (days): 3 days is the estimated time the patient will need to remain in the hospital, assuming treatment plan goals are met and no additional complications. Post-Hospital Plan: Not yet determined Wilbert Call Nov 23, 2016 11:36 Shweta Posadas MD Nov 23, 2016 16:29
[2016-11-23 12:34] LABS: INDIRECT BILIRUBIN 0.2 MG/DL (0.0-0.8); TOTAL BILIRUBIN ADULT 0.3 MG/DL (0.2-1.0)
[2016-11-23] MEDS ORDERED: BISACODYL 10 MG SUPP RECTAL ONE (15:00)
[2016-11-23] MEDS: ENALAPRILAT 1.25 MG/ML VIAL IV PUSH PRN (16:08)
[2016-11-23] MEDS ORDERED: PANTOPRAZOLE INJ 80 MG in SODIUM CHLORIDE 0.9% INJ 100 ML IV SCH (18:30)
[2016-11-23 18:53] LABS: REVIEW FLAG FINAL
[2016-11-23] MEDS: PANTOPRAZOLE INJ 80 MG in SODIUM CHLORIDE 0.9% INJ 100 ML IV SCH (21:36)
[2016-11-24] VITALS: BP 168/88; PULSE 90; RESP 20; TEMP 97.8; O2SAT 92
[2016-11-24] MEDS: LORazepam 2 MG/ML VIAL IV PUSH PRN ×3 (00:09→12:49)
[2016-11-24] MEDS: ENALAPRILAT 1.25 MG/ML VIAL IV PUSH PRN (01:15)
[2016-11-24 01:44] LABS: HEMATOCRIT 38.2 % (35.0-46.0); REVIEW FLAG FINAL
[2016-11-24 04:00] VITALS: BP 162/90; PULSE 90; RESP 16; TEMP 97.6; O2SAT 99
--- NOTE | 2016-11-24 05:58 | RADRPT ---
EXAM DATE/TIME: 11/24/2016 05:31 [facility] COMPARISON: No previous studies available for comparison. INDICATIONS : Abdominal distension MEDICAL HISTORY : Ulcerative colitis. Carcinoma, colon. SURGICAL HISTORY : Colon resection. Hysterectomy.Colectomy. Hip replacement ENCOUNTER: Subsequent ACUITY: 2 days PAIN SCORE: Non-responsive. LOCATION: Bilateral abdomen FINDINGS: Supine and upright views of the abdomen were performed. The abdominal bowel gas pattern is normal. No air fluid levels are seen. Degenerative changes in the spine. Beka fixation proximal left femur. CONCLUSION: 1. No acute findings. Lauri Miranda MD on November 24, 2016 at 5:54 Board Certified Radiologist. This report was verified electronically.
[2016-11-24 06:20] LABS: AUTOMATED NEUTROPHIL # 17.3 TH/MM3 (1.8-7.7); BASOPHIL # 0.3 TH/MM3 (0-0.2); BASOPHIL % 1.7 % (0.0-2.0); EOSINOPHIL # 0.1 TH/MM3 (0-0.4); EOSINOPHIL % 0.5 % (0.0-4.0); HEMATOCRIT 41.6 % (35.0-46.0); HEMO FLAGS AUTO DIFF; LYMPH % 7.6 % (9.0-44.0); LYMPHOCYTE # 1.5 TH/MM3 (1.0-4.8); MEAN CELL VOLUME 91.9 FL (80.0-100.0); MEAN CORPUSCULAR HEMOGLOBIN 30.5 PG (27.0-34.0); MEAN CORPUSCULAR HGB CONC 33.2 % (32.0-36.0); MONO % 4.1 % (0.0-8.0); NEUT % 86.1 % (16.0-70.0); PLATELET COUNT 239 TH/MM3 (150-450); RED BLOOD COUNT 4.52 MIL/MM3 (4.00-5.30); RED CELL DISTRIBUTION WIDTH 13.3 % (11.6-17.2)
[2016-11-24 06:22] LABS: CHLORIDE 107 MEQ/L (98-107); POTASSIUM 3.6 MEQ/L (3.5-5.1); SODIUM (NA) 144 MEQ/L (136-145)
[2016-11-24 06:27] LABS: ANION GAP 10 MEQ/L (5-15); BICARBONATE 27.5 MEQ/L (21.0-32.0); BLOOD UREA NITROGEN 38 MG/DL (7-18)
[2016-11-24 06:30] LABS: ALT (GPT) 15 U/L (10-53); AST (GOT) 19 U/L (15-37); GLOMERULAR FILTRATION RATE 42 ML/MIN (>89)
[2016-11-24 06:31] LABS: TOTAL BILIRUBIN ADULT 0.4 MG/DL (0.2-1.0)
[2016-11-24 06:33] LABS: ALKALINE PHOSPHATASE 184 U/L (45-117)
[2016-11-24 07:08] LABS: SCAN/DIFF AUTO DIFF CONFIRMED
[2016-11-24 08:00] VITALS: BP 139/78; PULSE 89; RESP 16; TEMP 98.1; O2SAT 99
--- NOTE | 2016-11-24 08:10 | HHI.PR ---
Subjective Remarks In bedm in restraints,. NGT in place with copious amount of dark brown fluid. Patient appears in some distress. Not able to talk. + tremors. KUB reviewed and appears SBO improved. Family at bedside as well. discussed with family and palliative care , family inclines toward hospice. Objective Vitals Vital Signs Date Time Temp Pulse Resp B/P (MAP) Pulse Ox O2 Delivery O2 Flow Rate FiO2 11/24/16 04:00 97.6 90 16 162/90 (114) 99 11/24/16 00:00 97.8 90 20 168/88 (114) 92 11/23/16 20:00 99 11/23/16 20:00 97.4 93 20 170/88 (115) 97 11/23/16 20:00 Nasal Cannula 4.00 11/23/16 16:00 99.7 96 22 185/90 (121) 93 11/23/16 12:00 99.2 98 20 173/88 (116) 94 I/O 11/23/16 11/23/16 11/23/16 11/24/16 11/24/16 11/24/16 07:00 15:00 23:00 07:00 15:00 23:00 Intake Total 1000 ml 661 ml 717 ml Output Total 400 ml 1000 ml 1400 ml Balance -400 ml 1000 ml -339 ml -683 ml Intake Oral 0 ml IV Total 1000 ml 661 ml 717 ml Output Urine Total 400 ml Gastric Drainage Total 1000 ml 1400 ml # Voids 1 4 3 # Bowel Movements 1 3 Result Diagram: 11/24/16 0543 11/24/16 0543 Imaging Last Impressions Abdomen X-Ray 11/24/16 06 Signed Impressions: Service Date/Time: Thursday, November 24, 2016 05:31 - CONCLUSION: 1. No acute findings. Lauri Miranda MD Abdomen/Pelvis CT 11/23/16 0530 Signed Impressions: Service Date/Time: October 05:43 - CONCLUSION: 1. Distended stomach and proximal and mid small bowel loops with air fluid levels with some distal decompression of small bowel most characteristic of an early or partial small bowel obstruction. 2. Severe chronic right-sided hydronephrosis with cortical atrophy. Nonobstructing renal calculi. 3. Large calcified gallstone. Lauri Miranda MD Objective Remarks GENERAL: Well-developed, well-nourished, in no acute distress. Awake CARDIAC: Regular rhythm, tachycardic. S1/S2 are heard. No murmurs gallops or rubs. LUNGS: Clear to auscultation bilaterally. No wheeze, rhonchi or rales. No use of accessory muscles on inspiration or expiration. ABDOMEN: Soft, nontender. Nondistended. Bowel sounds heard in all 4 quadrants. No organomegaly or masses. Negative rebound, negative guarding EXTREMITIES: No edema, pulses are equal bilaterally. No cyanosis or clubbing NEUROLOGY: Mood and affect appear appropriate. Cranial nerves II through XII grossly intact. Muscle strength 5/5 in upper and lower extremities bilaterally. Deep tendon reflexes are 2+ in upper and lower extremities bilaterally. A/P Problem List: (1) Systemic inflammatory response syndrome ICD Code: R65.10 - Systemic inflammatory response syndrome (SIRS) of non- infectious origin without acute organ dysfunction (2) Elevated lipase ICD Code: R74.8 - Abnormal levels of other serum enzymes (3) Leukocytosis ICD Code: D72.829 - Elevated white blood cell count, unspecified (4) Chronic kidney disease, stage 3 ICD Code: N18.3 - Chronic kidney disease, stage 3 (moderate) (5) Hematemesis ICD Code: K92.0 - Hematemesis Status: Acute (6) Small bowel obstruction ICD Code: K56.69 - Other intestinal obstruction (7) Fecal impaction in rectum ICD Code: K56.41 - Fecal impaction Assessment and Plan Systemic inflammatory response syndrome Patient meets criteria with leukocytosis, tachycardia, no signs of active infection at this time, likely secondary to bowel obstruction Check lactic acid level Monitor CBC, leukocytosis could be secondary to mild dehydration, concentration Small bowel obstruction with hematemesis per correction documentation and fecal impaction CT scan shows air-fluid levels, significant gastric distention and small bowel distention with distal small bowel decompression, significant stool in the rectum Continue conservative measures at this time with nothing by mouth, IV fluids Unsuccessful placement of NG tube in emergency department Fleet enema 1 if no improvement will likely need soapsuds enemas until clear Continue monitor KUB daily to evaluate for improvement Continue monitor hemoglobin/hematocrit due to the stated hematemesis GI bleed, hematemesis After NG tube was placed for bowel decompression, patient had immediately 1 L of maroon fluid. This was tested and was rapidly/grossly heme positive Will need to monitor hemoglobin and hematocrit Start Protonix IV Consult front office coordinator Transfuse if hemoglobin below 8.0 Elevated lipase Could be secondary to nausea, vomiting, bowel obstruction Continue monitor lipase level CT scan does not indicate any acute abnormality with pancreas Hypertension Unable to use by mouth medication this time Start Vasotec, Apresoline as needed for blood pressure control Resume home medications when patient is able to tolerate by mouth Chronic kidney disease stage III renal functions appear to be stable Monitor renal function avoid nephrotoxins DVT prevention sequential compression devices Goals of care: Discussed with son and [id number] bedside extensively about patient's condition. Notified them of possible etiologies, treatment plan, invasive procedures. At the present time they are still indecisive about their wishes. I discussed with them consulting palliative care and they are in agreement. KUB reviewed and appears SBO improved. Family at bedside as well. discussed with family and palliative care , family inclines toward hospice. Discharge Planning DC to hospice in deteriorating condition Diet: regular as tolerated Activity ad mark as tolerated Meds per med reconciliations Follow up with hospice Shweta Posadas MD Nov 24, 2016 08:10
[2016-11-24] MEDS: SODIUM CHLORIDE 0.9% FLUSH 10 ML FLUSH IV FLUSH SCH ×2 (09:00→09:28)
--- NOTE | 2016-11-24 09:07 | PD.CONS ---
HPI History of Present Illness This is a 89 year old female with a history of GERD, remote history of colon cancer, rectal ulcer in 2011, and duodenal AVMs, who was brought from a local nursing facility for evaluation of hematemesis. The patient is nonverbal and unable to provide any history and therefore the history has been obtained from the nursing staff and EMR. CT Scan abdomen and pelvis (11/23/16)----> Distended stomach and proximal and mid small bowel loops with air fluid levels with some distal decompression of small bowel most characteristic of an early or partial small bowel obstruction. Severe chronic right sided hydronephrosis with cortical atrophy. Nonobstructing renal calculi. Large calcified gallstone. She was given Dulcolax suppository, 2 fleets enemas and has since had multiple liquid brown bowel movements. However, she continued to have persistent nausea and vomiting. There was an episode of dark maroon colored emesis, which was sent for gastric occult and was found to be positive. An NGT was placed to LI. KUB (11/24/16)---> No acute findings. 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 This is a dark brownish/greenish color, but no hank red blood noted at this time. Her abdomen is soft and nontender and she does not appear to have tenderness on exam. The patient is nonverbal and appears cachetic. She is a DNR. Palliative care has been consulted and is scheduled to meet with the family this morning to clarify goals. EGD/colonoscopy on with Dr. Jamison --> duodenal AVM, duodenal diverticulum, gastritis, anal canal ulceration with possible mass and hemorrhoids. Pathology from that procedure noted benign hyperplastic colonic mucosa with features suggesting solitary rectal ulcer syndrome (prolapse). She then had an EGD on 11/15/12 which revealed esophagitis, hiatal hernia, dilated stomach and small bowel suggestive of a small bowel obstruction. Pathology revealed acute esophagitis with features of ulceration, grocott methenamine silver is negative for fungal organisms. (Sarah Ayala) PFSH Past Medical History Per EMR History of colon cancer Depression GERD Osteoporosis Hypothyroidism Hyperlipidemia Hypertension History of anemia Dementia Restless leg syndrome Rectal ulcer in 2011 Duodenal AVMs Past Surgical History Per EMR Hysterectomy Left hip surgery Vocal cord surgery EGD/Colonoscopy Partial colectomy (Sarah Ayala LINDA) Coded Allergies: No Known Allergies (Verified , 11/23/16) Medications Allergies Coded Allergies Type Severity Reaction Last Updated Verified No Known Allergies 11/23/16 Yes Active Scripts Medications Dose Route/Sig Max Daily Dose Days Date Category Dose Instructions Zofran (Ondansetron HCl) 4 Mg Tab 4 Mg PO Q6HR PRN 11/23/16 Reported Tylenol (Acetaminophen) 325 Mg Tab 650 Mg PO Q8HR PRN 11/23/16 Reported Questran (Cholestyramine) 4 Gm/Dose Powd 4 Gm PO Q6HR PRN 11/23/16 Reported 1 level scoopful of powder contains 4 grams of cholestyramine. Gabapentin 300 Mg Cap 300 Mg PO TID 11/23/16 Reported Urecholine (Bethanechol Chloride) 10 Mg Tab 10 Mg PO BID 11/23/16 Reported Magnesium Oxide 500 Mg Tab 500 Mg PO BID 11/23/16 Reported Buspirone (Buspirone HCl) 5 Mg Tab 5 Mg PO BID 11/23/16 Reported Amantadine (Amantadine HCl) 100 Mg Tab 100 Mg PO BID 11/23/16 Reported Primidone 50 Mg Tab 50 Mg PO HS 11/23/16 Reported Potassium Chloride ER (Potassium Chloride) 10 Meq Cap 10 Meq PO DAILY 11/23/16 Reported Namenda Xr (Memantine) 28 Mg Caper 28 Mg PO DAILY 11/23/16 Reported Levothyroxine (Levothyroxine Sodium) 75 Mcg Tab 75 Mcg PO DAILY 11/23/16 Reported Cranberry Urinary Comfort (Vitamins C & E) 1 Cap 1 Cap PO DAILY 11/23/16 Reported Colestipol (Colestipol HCl) 5 Gm Pkt 5 Gm PO DAILY 11/23/16 Reported 1 packet of granules contains 5 gm of colestipol. Celexa (Citalopram Hydrobromide) 10 Mg Tab 10 Mg PO HS 11/23/16 Reported Aricept (Donepezil) 23 Mg Tab 10 Mg PO HS 11/23/16 Reported Do not split, crushed or chewed. Family History Records reviewed and indicates that family history is significant for cancer Social History Records reviewed to indicate patient quit smoking in 1984. She lives at [facility]. No indication of any alcohol or illicit drugs (Sarah Ayala) Review of Systems ROS Unable to obtain (Sarah Ayala) GI Exam Vitals I&O Vital Signs Date Time Temp Pulse Resp B/P (MAP) Pulse Ox O2 Delivery O2 Flow Rate FiO2 11/24/16 04:00 97.6 90 16 162/90 (114) 99 11/24/16 00:00 97.8 90 20 168/88 (114) 92 11/23/16 20:00 99 11/23/16 20:00 97.4 93 20 170/88 (115) 97 11/23/16 20:00 Nasal Cannula 4.00 11/23/16 16:00 99.7 96 22 185/90 (121) 93 11/23/16 12:00 99.2 98 20 173/88 (116) 94 I/O 11/23/16 11/23/16 11/23/16 11/24/16 11/24/16 11/24/16 07:00 15:00 23:00 07:00 15:00 23:00 Intake Total 1000 ml 661 ml 717 ml Output Total 400 ml 1000 ml 1400 ml Balance -400 ml 1000 ml -339 ml -683 ml Intake Oral 0 ml IV Total 1000 ml 661 ml 717 ml Output Urine Total 400 ml Gastric Drainage Total 1000 ml 1400 ml # Voids 1 4 3 # Bowel Movements 1 3 Imaging Last Impressions Abdomen X-Ray 11/24/16 0600 Signed Impressions: Service Date/Time: Thursday, November 24, 2016 05:31 - CONCLUSION: 1. No acute findings. Lauri Miranda MD Abdomen/Pelvis CT 11/23/16 0530 Signed Impressions: Service Date/Time: October 05:43 - CONCLUSION: 1. Distended stomach and proximal and mid small bowel loops with air fluid levels with some distal decompression of small bowel most characteristic of an early or partial small bowel obstruction. 2. Severe chronic right-sided hydronephrosis with cortical atrophy. Nonobstructing renal calculi. 3. Large calcified gallstone. Lauri Miranda MD Laboratory Test 11/23/16 12:00 11/23/16 18:35 11/24/16 01:40 11/24/16 05:43 Lactic Acid Level 1.8 mmol/L Total Bilirubin 0.3 MG/DL 0.4 MG/DL Direct Bilirubin 0.1 MG/DL Indirect Bilirubin 0.2 MG/DL Aspartate Amino Transf (AST/SGOT) 14 U/L 19 U/L Alanine Aminotransferase (ALT/SGPT) 12 U/L 15 U/L Alkaline Phosphatase 181 U/L 184 U/L Total Protein 7.1 GM/DL 7.3 GM/DL Albumin 3.1 GM/DL 3.1 GM/DL Hemoglobin 12.3 GM/DL 12.8 GM/DL 13.8 GM/DL Hematocrit 37.0 % 38.2 % 41.6 % White Blood Count 20.0 TH/MM3 Red Blood Count 4.52 MIL/MM3 Mean Corpuscular Volume 91.9 FL Mean Corpuscular Hemoglobin 30.5 PG Mean Corpuscular Hemoglobin Concent 33.2 % Red Cell Distribution Width 13.3 % Platelet Count 239 TH/MM3 Mean Platelet Volume 9.7 FL Neutrophils (%) (Auto) 86.1 % Lymphocytes (%) (Auto) 7.6 % Monocytes (%) (Auto) 4.1 % Eosinophils (%) (Auto) 0.5 % Basophils (%) (Auto) 1.7 % Neutrophils # (Auto) 17.3 TH/MM3 Lymphocytes # (Auto) 1.5 TH/MM3 Monocytes # (Auto) 0.8 TH/MM3 Eosinophils # (Auto) 0.1 TH/MM3 Basophils # (Auto) 0.3 TH/MM3 CBC Comment AUTO DIFF Differential Comment AUTO DIFF CONFIRMED Blood Urea Nitrogen 38 MG/DL Creatinine 1.20 MG/DL Random Glucose 108 MG/DL Calcium Level 8.8 MG/DL Sodium Level 144 MEQ/L Potassium Level 3.6 MEQ/L Chloride Level 107 MEQ/L Carbon Dioxide Level 27.5 MEQ/L Anion Gap 10 MEQ/L Estimat Glomerular Filtration Rate 42 ML/MIN Lipase 90 U/L Physical Examination HEENT: Normocephalic; atraumatic; no jaundice. CHEST: Resp shallow/uneven CARDIAC: RRR ABDOMEN: Soft, nondistended, nontender; no hepatosplenomegaly; bowel sounds are hypoactive. NGT to [facility]WS with large dark brown gastric secretion SKIN: Generalized pallor HEAD OF GLOBAL STRATEGIC PARTNERSHIPS: Lethargic, nonverbal (Sarah Ayala) Assessment and Plan Plan ASSESSMENT: - Partial bowel obstruction vs. Ileus. CT Scan abdomen and pelvis (11/23/16)---- > Distended stomach and proximal and mid small bowel loops with air fluid levels with some distal decompression of small bowel most characteristic of an early or partial small bowel obstruction. Severe chronic right sided hydronephrosis with cortical atrophy. Nonobstructing renal calculi. Large calcified gallstone. S/P Dulcolax suppository, 2 fleets enemas---> multiple liquid brown bowel movements. NGT to LIWS. KUB (11/24/16)---> No acute findings. 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 - Constipation/fecal impaction. S/P Dulcolax, fleets enema x 2- multiple liquid stools. - Upper GI Bleeding. Persistent n/v, had episode of maroon blood yesterday. Now with dark brown gastric secretions. H/H has remained stable. EGD/colonoscopy on 05/08/[address] Jamison --> duodenal AVM, duodenal diverticulum, gastritis, anal canal ulceration with possible mass and hemorrhoids. Pathology from that procedure noted benign hyperplastic colonic mucosa with features suggesting solitary rectal ulcer syndrome (prolapse). EGD on 11/15/12 which revealed esophagitis, hiatal hernia, dilated stomach and small bowel suggestive of a small bowel obstruction. Pathology revealed acute esophagitis with features of ulceration, grocott methenamine silver is negative for fungal organisms. Protonix Gtt. HH stable. Will await family meeting with palliative care before deciding if EGD needed. - Leukocytosis. WBC 20.0. - Elevated Lipase, likely related to persistent vomiting. - SHELBIE on CKD. IVF. Per attending. - SIRS, Dementia, Depression, Osteoporosis, Hypothyroidism, Hyperlipidemia, HTN , RLS per attending. PLAN: - NPO - NGT to LIWS - Protonix Gtt - Monitor HH - Transfuse as needed - Palliative care meeting with family this morning. Will await their decision prior to making any decisions re: further workup. - Pt seen and examined by Dr. Alegria and myself and this note is written on his behalf (Sarah Ayala) Plan Patient was seen and examined, agree with the above note, patient will need evaluation by palliative care, don't think an EGD to be useful at this time (Wolf Alegira MD) Sarah Ayala Nov 24, 2016 09:07 Wolf Alegria MD Nov 24, 2016 11:22
[2016-11-24] MEDS: SODIUM CHLOR 0.45% 1000 ML INJ 1,000 ML IV SCH (09:28)
[2016-11-24] MEDS: PANTOPRAZOLE INJ 80 MG in SODIUM CHLORIDE 0.9% INJ 100 ML IV SCH (09:30)
--- NOTE | 2016-11-24 10:06 | PD.CONS ---
Consult Service Palliative Care Consult Requested By Katarzyna GAVIN . Primary Care Physician John Ballesteros MD . Reason for Consultation a. To assist with evaluation and management of symptoms including: nausea/ vomiting, debility, pain b. To assist medical decision maker(s) with: better understanding of current medical conditions; weighing benefits/burdens of medical treatment options; making medical treatment decisions. . HPI History of Present Illness Ms. Fuentes is an 89 year old female with a history of depression, GERD, osteoporosis, hypothyroidism, hyperlipidemia, hypertension, history of anemia, dementia, restless leg syndrome, rectal ulcer in 2011 and duodenal AVMs. She presented from [facility], where she is a resident on 2016 for evaluation of coffee-ground emesis. Patient denied abdominal discomfort or pain, stating the nurses at the facility where overreacting. In review of the notes, the patient does have a history of colon cancer status post partial resection of the colon. Patient is a DNR. Additional diagnostic data: * WBC 19.3, hemoglobin 15.4, hematocrit 46.4, platelets 296, neutrophils 91.2% * Sodium: 143, potassium 3.6, chloride 101, carbon dioxide 33.0, glucose 144, calcium 9.3 * BUN: 32, creatinine 1.40, GFR 35 * Lactic acid 1.8 * Lipase: 1090 * Urinalysis was negative * CT abdomen/pelvis revealed a distended stomach and proximal and mid bowel loops with air-fluid levels with some distal decompression of small bowel most characteristic of an early or partial small bowel obstruction; severe chronic right-sided hydronephrosis with cortical atrophy, nonobstructing renal calculi, large calcified gallstone. * KUB showed no acute findings. Workup showed some abnormalities with significant inflammatory response syndrome from leukocytosis, tachycardia, imaging showed a small bowel obstruction with significant distention of the stomach. The patient had multiple liquid brown stools status post dulcolax suppository and fleets enema, however she had persistent nausea and vomiting. An NGT was placed for bowel decompression with immediate return of 1 L maroon colored drainage; fluid was sent for gastric occult and was found to be positive. KUB showed no acute findings. The nurse reports the patient had 1,400cc of gastric output on overnight. The drainage is dark brownish/greenish color; no hank red blood noted at this time. Abdomen is soft and nontender with no apparent tenderness with palpation. The patient is nonverbal and appears cachetic. Of note, an EGD/colonoscopy in 2012 --> duodenal AVM, duodenal diverticulum, gastritis, anal canal ulceration with possible mass and hemorrhoids. Pathology revealed benign hyperplastic colonic mucosa with features suggesting solitary rectal ulcer syndrome (prolapse). Patient had a second EGD on 11/15/12 which showed esophagitis, hiatal hernia, dilated stomach,small bowel obstruction. Pathology revealed acute esophagitis with features of ulceration, grocott methenamine silver is negative for fungal organisms. Palliative Care was consulted to assist with symptom management and to discuss with the patient/family the benefits and burdens of her current illnesses and the options regarding future care. . Function/Cognitive Trajectory Patient is an 89 year old female who has been a resident at [facility] since approximately 2010 status post a fall resulting in a fractured hip and shoulder. She is primarily wheelchair bound. She is able to walk a few feet with a walker and maximum assist. Patient attempts to transfer herself from bed to her wheelchair; this has resulted in multiple falls. She appears frail and cachectic; the family reports an estimated weight loss of 40- 50 pounds in the past several years. They state she has difficulty with toileting and bathing which they think is associated with her recurrent UTIs. Patient is occasionally incontinent. She is intermittently confused with short- term memory loss as evidenced by a repetitive questions and forgetfulness. Review of Systems ROS Limitations: Clinical Condition, Altered Mental Status, Poor Historian ( ROS obtained from review of notes and family report) Constitutional: COMPLAINS OF: Weight loss (Family reporta a 40 - 50lb weight loss in the past several years), Change in appetite (poor appetite) Ears, nose, mouth, throat: COMPLAINS OF: Hearing loss Gastrointestinal: COMPLAINS OF: Nausea, Vomiting, Vomiting blood Neurologic: COMPLAINS OF: Abnormal gait, Localized weakness, Speech Problems, Tremor, Poor Balance Psychiatric: COMPLAINS OF: Confusion Past Family Social History Coded Allergies: No Known Allergies (Verified , 11/23/16) Past Medical History Per EMR: History of colon cancer Depression GERD Osteoporosis Hypothyroidism Hyperlipidemia Hypertension History of anemia Dementia Restless leg syndrome Rectal ulcer in 2012 Duodenal AVMs . Past Surgical History Per EMR Hysterectomy Left hip surgery Vocal cord surgery EGD/Colonoscopy Partial colectomy . Reported Medications Zofran (Ondansetron HCl) 4 Mg Tab 4 Mg PO Q6HR PRN Tylenol (Acetaminophen) 325 Mg Tab 650 Mg PO Q8HR PRN Questran (Cholestyramine) 4 Gm/Dose Powd 4 Gm PO Q6HR PRN 1 level scoopful of powder contains 4 grams of cholestyramine. Gabapentin 300 Mg Cap 300 Mg PO TID Urecholine (Bethanechol Chloride) 10 Mg Tab 10 Mg PO BID Magnesium Oxide 500 Mg Tab 500 Mg PO BID Buspirone (Buspirone HCl) 5 Mg Tab 5 Mg PO BID Amantadine (Amantadine HCl) 100 Mg Tab 100 Mg PO BID Primidone 50 Mg Tab 50 Mg PO HS Potassium Chloride ER (Potassium Chloride) 10 Meq Cap 10 Meq PO DAILY Namenda Xr (Memantine) 28 Mg Caper 28 Mg PO DAILY Levothyroxine (Levothyroxine Sodium) 75 Mcg Tab 75 Mcg PO DAILY Cranberry Urinary Comfort (Vitamins C & E) 1 Cap 1 Cap PO DAILY Colestipol (Colestipol HCl) 5 Gm Pkt 5 Gm PO DAILY 1 packet of granules contains 5 gm of colestipol. Celexa (Citalopram Hydrobromide) 10 Mg Tab 10 Mg PO HS Aricept (Donepezil) 23 Mg Tab 10 Mg PO HS Do not split, crushed or chewed. . Current Medications Medications (Trade) Dose Ordered Sig/Servando Route Start Time Stop Time Status Last Admin Sodium Chloride 1,000 ml @ 75 mls/hr [id number] IV 11/23/16 05:45 11/23/16 21:35 (NS Flush) 2 ml UNSCH PRN IV FLUSH 11/23/16 05:45 (NS Flush) 2 ml BID IV FLUSH 11/23/16 09:00 11/23/16 21:36 (Zofran Inj) 4 mg Q6H PRN IVP 11/23/16 05:45 11/23/16 16:08 (Narcan Inj) 0.4 mg UNSCH PRN IV PUSH 11/23/16 05:45 (Vasotec Inj) 1.25 mg Q6H PRN IV PUSH 11/23/16 11:00 11/24/16 01:15 (Apresoline Inj) 20 mg Q4H PRN IV PUSH 11/23/16 11:00 (Ativan Inj) 1 mg Q6H PRN IV PUSH 11/23/16 17:15 11/24/16 06:18 Pantoprazole Sodium 80 mg/ Sodium Chloride 100 ml @ 10 mls/hr CONTINUOUS IV 11/23/16 20:00 11/23/16 21:36 . Family History Records reviewed and indicates that family history is significant for cancer . Substance Use Tobacco: Former smoker; patient quit smoking in 1984 Alcohol: None known Prescription med abuse: None known Illicits: None known . Psychosocial History Patient is originally from [place]. She has 3 brothers and 1 sister, all . She was to her from [birth year] until he in 1986. They moved to [place] in 1955. Together they had 3 children (Vitor, Dutch and Kajal). The 2 boys live locally. Daughter, Kajal, lives in [place]. She has several grandchildren and a great-grandchild on the way. 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 . Spiritual/Cultural Factors Mandaen betsy . Health Care Surrogate: Copy in medical record Date completed: 03/25/2012 . Health Care Surrogate(s): Vitor Fuentes is designated as the healthcare surrogate decision maker. Alternate health care decision maker is Dutch Fuentes. . Documented care wishes: No living will was completed. . Today's verbally stated goals: Patient is unable to verbalize medical treatment goals secondary to her level of responsiveness at the time of exam. . Family/friends goals: Family has requested to speak with someone for hospice, consult pending. . Ethical and Legal Issues No known ethical or legal issues at this time. . Physical Exam Vital Signs Date Time Temp Pulse Resp B/P (MAP) Pulse Ox O2 Delivery O2 Flow Rate FiO2 11/24/16 08:00 98.1 89 16 139/78 (98) 99 11/24/16 04:00 97.6 90 16 162/90 (114) 99 11/24/16 00:00 97.8 90 20 168/88 (114) 92 11/23/16 20:00 99 11/23/16 20:00 97.4 93 20 170/88 (115) 97 11/23/16 20:00 Nasal Cannula 4.00 11/23/16 16:00 99.7 96 22 185/90 (121) 93 11/23/16 12:00 99.2 98 20 173/88 (116) 94 . 11/24/16 11/25/16 19:00 07:00 Intake Total 1060 ml Balance 1060 ml IV Total 1060 ml . Exam CONSTITUTIONAL/GENERAL: This is a frail, cachectic elderly female patient in no apparent distress. TUBES/LINES/DRAINS: PIV 1, SKIN: No jaundice, rashes, or lesions. No wounds seen anteriorly. Skin temperature appropriate. Not diaphoretic. Generalized pallor HEAD: Atraumatic. Normocephalic. EYES: Pupils equal and round and reactive. No scleral icterus. No injection or drainage. Fundi not examined. ENT: Hearing grossly normal. Nose without bleeding or purulent drainage. NECK: Trachea midline. CARDIOVASCULAR: Regular rate and rhythm without murmurs, gallops, or rubs. No JVD. RESPIRATORY/CHEST: Respirations shallow. Breath sounds diminished bilaterally. GASTROINTESTINAL: Soft, nondistended, nontender; no hepatosplenomegaly; bowel sounds are hypoactive. NGT to LIWS with large dark brown gastric secretion GENITOURINARY: Without palpable bladder distension. MUSCULOSKELETAL: Extremities without clubbing, cyanosis, or edema. LYMPHATICS: No palpable cervical or supraclavicular adenopathy. NEUROLOGICAL: Lethargic, non-verbal. Not PSYCHIATRIC: No obvious anxiety/depression; difficult to assess secondary to patient's level of responsiveness. . Diagnostic Tests Laboratory Laboratory Tests Test 11/23/16 04:43 11/23/16 05:06 11/23/16 12:00 11/23/16 18:35 White Blood Count 19.3 TH/MM3 (4.0-11.0) Red Blood Count 5.13 MIL/MM3 (4.00-5.30) Hemoglobin 15.4 GM/DL (11.6-15.3) 12.3 GM/DL (11.6-15.3) Hematocrit 46.4 % (35.0-46.0) 37.0 % (35.0-46.0) Mean Corpuscular Volume 90.4 FL (80.0-100.0) Mean Corpuscular Hemoglobin 30.0 PG (27.0-34.0) Mean Corpuscular Hemoglobin Concent 33.1 % (32.0-36.0) Red Cell Distribution Width 13.4 % (11.6-17.2) Platelet Count 296 TH/MM3 (150-450) Mean Platelet Volume 9.1 FL (7.0-11.0) Neutrophils (%) (Auto) 91.2 % (16.0-70.0) Lymphocytes (%) (Auto) 3.6 % (9.0-44.0) Monocytes (%) (Auto) 4.1 % (0.0-8.0) Eosinophils (%) (Auto) 0.1 % (0.0-4.0) Basophils (%) (Auto) 1.0 % (0.0-2.0) Neutrophils # (Auto) 17.6 TH/MM3 (1.8-7.7) Lymphocytes # (Auto) 0.7 TH/MM3 (1.0-4.8) Monocytes # (Auto) 0.8 TH/MM3 (0-0.9) Eosinophils # (Auto) 0.0 TH/MM3 (0-0.4) Basophils # (Auto) 0.2 TH/MM3 (0-0.2) CBC Comment AUTO DIFF Differential Total Cells Counted 100 Neutrophils % (Manual) 82 % (16-70) Band Neutrophils % 10 % (0-6) Lymphocytes % 4 % (9-44) Monocytes % 4 % (0-8) Neutrophils # (Manual) 17.8 TH/MM3 (1.8-7.7) Differential Comment FINAL DIFF MANUAL Platelet Estimate NORMAL (NORMAL) Platelet Morphology Comment NORMAL (NORMAL) Red Cell Morphology Comment NORMAL (NORMAL) Blood Urea Nitrogen 32 MG/DL (7-18) Creatinine 1.40 MG/DL (0.50-1.00) Random Glucose 144 MG/DL (74-106) Calcium Level 9.3 MG/DL (8.5-10.1) Sodium Level 143 MEQ/L (136-145) Potassium Level 3.6 MEQ/L (3.5-5.1) Chloride Level 101 MEQ/L (98-107) Carbon Dioxide Level 33.0 MEQ/L (21.0-32.0) Anion Gap 9 MEQ/L (5-15) Estimat Glomerular Filtration Rate 35 ML/MIN (>89) Lipase 1090 U/L (73-393) Urine Color YELLOW (YELLW/STRAW) Urine Turbidity CLEAR (CLEAR) Urine pH 7.5 (5.0-8.5) Urine Specific Bolton 1.022 (1.002-1.035) Urine Protein 300 OR GREATER mg/dL Urine Glucose (UA) NEG mg/dL (NEG) Urine Ketones NEG mg/dL (NEG) Urine Occult Blood NEG (NEG) Urine Nitrite NEG (NEG) Urine Bilirubin NEG (NEG) Urine Leukocyte Esterase NEG (NEG) Urine RBC 0-3 /hpf (0-3) Urine WBC 3-5 /hpf (0-5) Urine Squamous Epithelial Cells 0-5 /hpf (0-5) Urine Bacteria NONE /hpf (NONE) Microscopic Urinalysis Comment CATH-CULT NOT IND Lactic Acid Level 1.8 mmol/L (0.4-2.0) Total Bilirubin 0.3 MG/DL (0.2-1.0) Direct Bilirubin 0.1 MG/DL (0.0-0.2) Indirect Bilirubin 0.2 MG/DL (0.0-0.8) Aspartate Amino Transf (AST/SGOT) 14 U/L (15-37) Alanine Aminotransferase (ALT/SGPT) 12 U/L (10-53) Alkaline Phosphatase 181 U/L (45-117) Total Protein 7.1 GM/DL (6.4-8.2) Albumin 3.1 GM/DL (3.4-5.0) Test 11/24/16 01:40 11/24/16 05:43 Hemoglobin 12.8 GM/DL (11.6-15.3) 13.8 GM/DL (11.6-15.3) Hematocrit 38.2 % (35.0-46.0) 41.6 % (35.0-46.0) White Blood Count 20.0 TH/MM3 (4.0-11.0) Red Blood Count 4.52 MIL/MM3 (4.00-5.30) Mean Corpuscular Volume 91.9 FL (80.0-100.0) Mean Corpuscular Hemoglobin 30.5 PG (27.0-34.0) Mean Corpuscular Hemoglobin Concent 33.2 % (32.0-36.0) Red Cell Distribution Width 13.3 % (11.6-17.2) Platelet Count 239 TH/MM3 (150-450) Mean Platelet Volume 9.7 FL (7.0-11.0) Neutrophils (%) (Auto) 86.1 % (16.0-70.0) Lymphocytes (%) (Auto) 7.6 % (9.0-44.0) Monocytes (%) (Auto) 4.1 % (0.0-8.0) Eosinophils (%) (Auto) 0.5 % (0.0-4.0) Basophils (%) (Auto) 1.7 % (0.0-2.0) Neutrophils # (Auto) 17.3 TH/MM3 (1.8-7.7) Lymphocytes # (Auto) 1.5 TH/MM3 (1.0-4.8) Monocytes # (Auto) 0.8 TH/MM3 (0-0.9) Eosinophils # (Auto) 0.1 TH/MM3 (0-0.4) Basophils # (Auto) 0.3 TH/MM3 (0-0.2) CBC Comment AUTO DIFF Differential Comment AUTO DIFF CONFIRMED Blood Urea Nitrogen 38 MG/DL (7-18) Creatinine 1.20 MG/DL (0.50-1.00) Random Glucose 108 MG/DL (74-106) Total Protein 7.3 GM/DL (6.4-8.2) Albumin 3.1 GM/DL (3.4-5.0) Calcium Level 8.8 MG/DL (8.5-10.1) Alkaline Phosphatase 184 U/L (45-117) Aspartate Amino Transf (AST/SGOT) 19 U/L (15-37) Alanine Aminotransferase (ALT/SGPT) 15 U/L (10-53) Total Bilirubin 0.4 MG/DL (0.2-1.0) Sodium Level 144 MEQ/L (136-145) Potassium Level 3.6 MEQ/L (3.5-5.1) Chloride Level 107 MEQ/L (98-107) Carbon Dioxide Level 27.5 MEQ/L (21.0-32.0) Anion Gap 10 MEQ/L (5-15) Estimat Glomerular Filtration Rate 42 ML/MIN (>89) Lipase 90 U/L (73-393) . Result Diagram: 11/24/16 0543 11/24/16 0543 Imaging Last 72 hours Impressions Abdomen X-Ray 11/24/16 0600 Signed Impressions: Service Date/Time: Thursday, November 24, 2016 05:31 - CONCLUSION: 1. No acute findings. Lauri Miranda MD Abdomen/Pelvis CT 11/23/16 0530 Signed Impressions: Service Date/Time: October 05:43 - CONCLUSION: 1. Distended stomach and proximal and mid small bowel loops with air fluid levels with some distal decompression of small bowel most characteristic of an early or partial small bowel obstruction. 2. Severe chronic right-sided hydronephrosis with cortical atrophy. Nonobstructing renal calculi. 3. Large calcified gallstone. Lauri Miranda MD . Patient/Family Conference Present at Family Conference: Met with patient's 2 sons, [id number] and granddaughter at bedside and privately and family conference room. . Family Conference Location: Bedside, Consult Room Issues Discussed: * Palliative care role, purpose, approach * Additional medical, psychosocial, and spiritual history * Patients general health, functional status, and cognitive changes in the months leading up to the current hospitalization * Patient/family understanding of the current medical problems * Patient/family understanding of prognosis * Patients goals of care as best understood from advance directives and/or conversations and/or values * Current medical treatment options and benefits/burdens of those options * Likely scenarios comparing ongoing aggressive care with a transition to comfort measures only * Questions answered to the best of my ability * Palliative care contact information provided . Assessment and Plan Disease Oriented Problem List: (1) Hematemesis (2) Pancreatitis (3) Moderate dehydration (4) Leukocytosis (5) Systemic inflammatory response syndrome (6) Elevated lipase (7) Small bowel obstruction (8) Fecal impaction in rectum Symptom Scale: (1) Pain (2) Debility (3) Nausea & vomiting Pertinent Non-Medical Issues Psychosocial:Patient is originally from [place]. She has 3 brothers and 1 sister, all . She was to her from 1944 until he in 1986. They moved to [place] in 1955. Together they had 3 children (Vitor, Dutch and Kajal). The 2 boys live locally. Daughter, Kajal, lives in [place]. She has several grandchildren and a great-grandchild on the way. 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 Spiritual: Mandaen betsy Legal:Vitor Fuentes is designated as the healthcare surrogate decision maker. Alternate health care decision maker is Dutch Fuentes. Ethical issues impacting care: No known ethical issues impacting care at this time. . Important Contacts Vitor Fuentes (Mica), HCS/son: [phone] or cell [phone] Dutch Fuentes, son: [phone] . Prognosis Patient is a frail, cachectic 89-year-old female patient currently admitted with a partial bowel obstruction versus ileus and GI bleed. Family describes a slow trajectory of decline over the past several years. Given the patient's age , multiple comorbid conditions, performance status and level of responsiveness on exam, she is extremely high risk for any aggressive interventions. Patient is hospice appropriate if patient/family goals are comfort oriented. . Code Status: No Code Plan * NO CODE - DNR/DNI * Decision-making: Vitor Fuentes is designated as the healthcare surrogate decision maker. Alternate health care decision maker is Dutch Fuentes. * Patient is a frail, cachectic 89-year-old female patient currently admitted with a partial bowel obstruction versus ileus and GI bleed. Family describes a slow trajectory of decline over the past several years. Given the patient's age , multiple comorbid conditions, performance status and level of responsiveness on exam, she is extremely high risk for any aggressive interventions. * Family does not want to pursue further diagnostic procedures or aggressive interventions if they will only serve to prolong patient suffering. They would like to speak with hospice;considering transitioning to comfort focused care. * Hospice consult pending; spoke with hospice admission nurse-Lisa. * Discussed with patient's nurse. * [employer] consult pending * Symptom management-nausea/vomiting: Secondary to partial bowel obstruction versus ileus, upper GI bleed. Patient remains NPO. NGT to LIWS with dark brown gastric secretions. On Protonix; PRN Zofran is ordered. * Symptom management - debility: Patient is an 89 year old female who has been a resident at [facility] since approximately 2010 status post a fall resulting in a fractured hip and shoulder. She is primarily wheelchair bound. She is able to walk a few feet with a walker and maximum assist. Patient attempts to transfer herself from bed to her wheelchair; this has resulted in multiple falls. She appears frail and cachectic; the family reports an estimated weight loss of 40-50 pounds in the past several years. No recommendations. * Symptom management - pain: No nonverbal signs/symptoms of pain are noted at the time of exam. Factors that may contribute to pain include SBO, cachexia, immobility/bedbound status, recent recurrent falls, suspected GI bleed, invasive lines. Would recommend having PRN medication available as the patient will likely develop increasing pain. * Palliative care contact information provided to the patient's family. * Palliative care will continue to follow this patient throughout her hospitalization to establish trust, assist with symptom management and clarification of medical treatment goals. Thank you for the opportunity to participate in the care of Ms. Fuentes. . Attestation To help prompt me to consider important information that might be impacting today's encounter and assessment, information from prior notes written by myself or my colleagues may have been "brought forward" into today's note. My signature on this note, however, is an attestation that I personally performed the exam, history, and/or decision-making noted today, and, unless otherwise indicated, the interactions with patient, family, and staff as well as the review of records all occurred today. I also attest that the listed assessment and stated plan reflect my best clinical judgment today based on the combination of historical information, prior notes, and today's exam/ interactions. When time spent is documented, it refers only to time spent today by the signer, or if indicated, combined time spent today by collaborating physician/nurse practitioner. . Esperanza Judge Nov 24, 2016 10:06 am
[2016-11-24 12:00] VITALS: BP 150/76; PULSE 116; RESP 20; TEMP 97.9; O2SAT 96
--- NOTE | 2016-11-24 14:02 | HHI.DCPOC ---
Discharge Care Plan Diagnosis: (1) Systemic inflammatory response syndrome (2) Fecal impaction in rectum (3) Small bowel obstruction Goals to Promote Your Health * To prevent worsening of your condition and complications * To maintain your health at the optimal level Directions to Meet Your Goals Take your medications as prescribed Follow your dietary instruction Follow activity as directed Keep your appointments as scheduled Take your immunizations and boosters as scheduled If your symptoms worsen call your PCP, if no PCP go to Urgent Care Center or Emergency Room Smoking is Dangerous to Your Health. Avoid second hand smoke Call the 24-hour hour crisis hotline for domestic abuse at [facility] Call Nov 24, 2016 14:02
[2016-11-24 16:00] VITALS: BP 160/90; PULSE 113; RESP 21; TEMP 97.4; O2SAT 96
[2016-11-24] MEDS ORDERED: PANTOPRAZOLE 80 MG/100 ML NS IV SCH ×2 (19:00)
== END 2016-11-24 18:16 | disposition hospice, inpatient (51) | DRG 377 ==
LOC: PHED 04:09 → PHEDA 05:49 → PH3A 06:55 → PH3B 13:16
PROVIDERS: ADMIT Hospitalist; ATTEND Hospitalist
DX: K92.0 Hematemesis (principal); K85.90 Acute pancreatitis without necrosis or infection, unspecified; N17.9 Acute kidney failure, unspecified; R64 Cachexia; N18.3 Chronic kidney disease, stage 3 (moderate); N13.2 Hydronephrosis with renal and ureteral calculous obstruction; F03.90 Unspecified dementia, unspecified severity, without behavioral disturbance, psychotic disturbance, mood disturbance, and anxiety; E86.0 Dehydration; I12.9 Hypertensive chronic kidney disease with stage 1 through stage 4 chronic kidney disease, or unspecified chronic kidney disease; E03.9 Hypothyroidism, unspecified; E78.5 Hyperlipidemia, unspecified; K21.0 Gastro-esophageal reflux disease with esophagitis; K44.9 Diaphragmatic hernia without obstruction or gangrene; K56.41 Fecal impaction; G25.81 Restless legs syndrome; K80.20 Calculus of gallbladder without cholecystitis without obstruction; M81.0 Age-related osteoporosis without current pathological fracture; Z66 Do not resuscitate; Z78.1 Physical restraint status; F32.9 Major depressive disorder, single episode, unspecified; Z85.038 Personal history of other malignant neoplasm of large intestine; Z87.440 Personal history of urinary (tract) infections; Z87.891 Personal history of nicotine dependence; Z96.649 Presence of unspecified artificial hip joint; Z99.3 Dependence on wheelchair
CPT/HCPCS: 74020; 74176; 80048; 80053; 80076; 81001; 83605; 83690; 85007; 85014; 85018; 85025; 85027; 86850; 86900; 86901; 96361; 96372; 96374; 96375; C9113; J0696; J2060; J2405; J7030